=== PATIENT | female | born 1990 | race African-American/Black ===

== ENCOUNTER 2018-01-10 23:46 | Emergency (ER) | payer MEDICAID ==
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
[2018-01-11 01:00] LABS: % BASOPHILS 0.2 % (0.0-2.0); % EOSINOPHILS 5.7 % (0.0-5.0); % LYMPHOCYTES 20.3 % (20.0-50.0); % NEUTROPHILS 66.8 % (40.0-80.0); EOSINOPHILE ABSOLUTE 0.4 Th/cmm (0.1-0.4); HEMATOCRIT 32.7 % (41.0-60); HEMOGLOBIN 10.5 gm/dL (12-16); LYMPHOCYTE ABSOLUTE 1.5 Th/cmm (1.5-3.0); MEAN CELL VOLUME 73.6 fl (81-100); MEAN CORPUSCULAR HEMOGLOBIN 23.7 pg (27.0-31.0); MEAN CORPUSCULAR HGB CONC 32.2 pg (28.0-36.0); MEAN PLATELET VOLUME 7.9 fl; MONOCYTE ABSOLUTE 0.5 Th/cmm (0.3-1.0); NEUTROPHILE ABSOLUTE 4.8 Th/cmm (1.8-8.0); PLATELET COUNT 280 Th/cmm (150-400); RED BLOOD COUNT 4.44 Mil/cmm (3.80-5.10); RED CELL DISTRIBUTION WIDTH 15.7 % (11.5-20.0); URINE SOURCE MIDSTREAM; WHITE BLOOD COUNT 7.2 Th/cmm (4.8-10.8)
[2018-01-11 01:07] LABS: URINE BILIRUBIN NEGATIVE (NEGATIVE); URINE BLOOD LARGE (NEGATIVE); URINE GLUCOSE (UA) NEGATIVE (NEGATIVE); URINE KETONE NEGATIVE (NEGATIVE); URINE LEUKOCYTE ESTERASE SMALL (NEGATIVE); URINE MICROSCOPIC INDICATED? YES; URINE NITRATE NEGATIVE (NEGATIVE); URINE PH 6.5 (4.6 - 8.0); URINE PROTEIN TRACE mg/dL (NEGATIVE); URINE UROBILINOGEN 0.2 E.U./dL (0.2 - 1.0)
[2018-01-11 01:10] LABS: URINE CLARITY HAZY (CLEAR); URINE COLOR YELLOW
[2018-01-11 01:14] LABS: URINE BACTERIA FEW /hpf (NONE SEEN); URINE EPITHELIAL CELLS FEW /lpf (FEW); URINE RBC 0-2 /hpf (0-5); URINE WBC 0-2 /hpf (0-5)
[2018-01-11 01:17] LABS: ALBUMIN 3.8 gm/dL (3.7-5.3); ALKALINE PHOSPHATASE 74 U/L (34-104); ANION GAP 8.8 (7.0-16.0); BILIRUBIN,TOTAL 0.3 mg/dL (0.3-1.0); BUN - UREA NITROGEN 11 mg/dL (7-25); CALCIUM SERUM 9.1 mg/dL (8.6-10.3); CARBON DIOXIDE 27.8 mEq/L (21.0-31.0); CHLORIDE 104 mEq/L (98-107); CREATININE - SERUM 0.8 mg/dL (0.6-1.2); GFR AFRICAN-AMERICAN > 60.0 ml/min (>90); GFR NON AFRICAN-AMERICAN > 60.0 ml/min; GLUCOSE 89 mg/dL (70-105); LIPASE 18 U/L (11-82); POTASSIUM SERUM 3.6 mEq/L (3.5-5.1); SGOT 16 U/L (13-39); SGPT/ALT 10 U/L (7-52); SODIUM SERUM 137 mEq/L (136-145); TOTAL PROTEIN,SERUM 7.6 gm/dL (6.0-8.3)
== END 2018-01-11 01:20 | disposition left against medical advice (07) ==
LOC: ER 23:46
DX: D50.9 Iron deficiency anemia, unspecified (principal); N39.0 Urinary tract infection, site not specified; R20.2 Paresthesia of skin; R07.89 Other chest pain; F17.200 Nicotine dependence, unspecified, uncomplicated; Z90.49 Acquired absence of other specified parts of digestive tract; Z98.890 Other specified postprocedural states
CPT/HCPCS: 36415-UA; 80053-TC; 81001-TC; 83690-TC; 85025-TC; Z7502

== ENCOUNTER 2018-01-14 00:36 | Emergency (ER) | payer MEDICAID ==
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
== END 2018-01-14 00:50 | disposition left against medical advice (07) ==
LOC: ER 00:36
DX: R20.2 Paresthesia of skin (principal)